=== PATIENT | male | born 1960 | race Caucasian/White ===

== ENCOUNTER 2018-11-06 08:12 | Emergency (ER) | payer BC, OTHER ==
--- NOTE | 2018-11-06 08:42 | EDM.PDOC ---
ED HPI GENERAL MEDICAL PROBLEM - General Chief Complaint: Upper Extremity Injury/Pain Stated Complaint: RIGHT HAND NOT WORKING [id number] Time Seen by Provider: 11/06/18 08:40 Source of Information: Reports: Patient History Limitations: Reports: No Limitations - History of Present Illness INITIAL COMMENTS - FREE TEXT/NARRATIVE: This 57 yo male patient reports to the ED with right hand weakness, numbness and swelling. The patient reports he noticed the symptoms this morning, but his symptoms have not gone away at this time. The patient reports when he was at work, he had a difficult time moving his right arm. The patient reports he still has some weakness in his right hand, but his arm seems to be working fine. The patient reports a history of a traumatic injury to his head. The patient has also been seen by a chiropractor (last visit 1 year ago). The patient reports the swelling in his right upper extremity has decreased. Onset: Today Onset Date: 11/06/18 Onset Time: 06:30 Duration: Constant, Improving Location: Reports: Upper Extremity, Right Quality: Reports: Dull (numbness with swelling) Severity: Moderate Improves with: Reports: Other (time) Worsens with: Reports: None Associated Symptoms: Reports: No Other Symptoms - Related Data Allergies Allergy/AdvReac Type Severity Reaction Status Date / Time small red pill for itching Allergy Rash Uncoded 11/06/18 08:19 Home Meds: Home Meds Aspirin [Madi Chewable] 81 mg PO DAILY 04/03/14 [History] Losartan [Cozaar] 50 mg PO DAILY 04/03/14 [History] Metoprolol Succinate [Toprol XL] 75 mg PO DAILY 11/06/18 [History] Past Medical History HEENT History: Reports: Allergic Rhinitis Cardiovascular History: Reports: Hypertension - Past Surgical History GI Surgical History: Reports: Hernia Repair/Other Musculoskeletal Surgical History: Reports: Arthroscopic Knee, Other (See Below) Other Musculoskeletal Surgeries/Procedures:: jaw surgery Social & Family History - Tobacco Use Smoking Status *Q: Never Smoker Second Hand Smoke Exposure: No - Recreational Drug Use Recreational Drug Use: No Review of Systems - Review of Systems Review Of Systems: ROS reveals no pertinent complaints other than HPI. ED EXAM, GENERAL - Physical Exam Exam: See Below Exam Limited By: No Limitations General Appearance: Alert, WD/WN, Mild Distress Eye Exam: Bilateral Eye: EOMI, Normal Inspection, PERRL Ears: Normal External Exam, Normal Canal, Hearing Grossly Normal, Normal TMs Nose: Normal Inspection, Normal Mucosa, No Blood Throat/Mouth: Normal Inspection, Normal Lips, Normal Teeth, Normal Gums, Normal Oropharynx, Normal Voice, No Airway Compromise Head: Atraumatic, Normocephalic Neck: Normal Inspection, Supple, Non-Tender, Full Range of Motion Respiratory/Chest: No Respiratory Distress, Lungs Clear, Normal Breath Sounds, No Accessory Muscle Use, Chest Non-Tender Cardiovascular: Normal Peripheral Pulses, Regular Rate, Rhythm, No Edema, No Gallop, No JVD, No Murmur, No Rub GI/Abdominal: Normal Bowel Sounds, Soft, Non-Tender, No Organomegaly, No Distention, No Abnormal Bruit, No Mass (Male) Exam: Deferred Rectal (Males) Exam: Deferred Back Exam: Normal Inspection, Full Range of Motion, NT Extremities: Arm Pain (right arm weakness, numbness, swelling and coordination problems. 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 There was some mild swelling of the right hand, but the patient reports he normally has some swelling due to arthritis. ) Neurological: Alert, Oriented, CN II-XII Intact, Normal Cognition, Normal Gait Psychiatric: Normal Affect, Normal Mood Skin Exam: Warm, Dry, Intact, Normal Color, No Rash Lymphatic: No Adenopathy Course - Vital Signs Last Recorded V/S: Last Vital Signs Temp 35.4 C 11/06/18 08:15 Pulse 72 11/06/18 08:15 Resp 18 11/06/18 08:15 BP 143/89 H 11/06/18 08:15 Pulse Ox 97 11/06/18 08:15 - Orders/Labs/Meds Labs: Laboratory Tests 11/06/18 11/06/18 11/06/18 Range/Units 08:37 08:37 08:37 WBC 7.3 (5.0-10.0) 10^3/uL RBC 5.18 (4.6-6.2) 10^6/uL Hgb 16.9 (14.0-18.0) g/dL Hct 49.8 (40.0-54.0) % MCV 96.1 (80-100) fL MCH 32.6 (27.0-34.0) pg MCHC 33.9 (33.0-35.0) g/dL Plt Count 246 (150-450) 10^3/uL Neut % (Auto) 56.5 (42.2-75.2) % Lymph % (Auto) 30.0 (20.5-50.1) % Wells % (Auto) 10.1 H (2-8) % Eos % (Auto) 2.8 (1.0-3.0) % Baso % (Auto) 0.6 (0.0-1.0) % Add Manual Diff Yes Neutrophils % (Manual) 58 (42-75) % Band Neutrophils % 3 % Lymphocytes % (Manual) 25 (20-50) % Monocytes % (Manual) 9 H (2-8) % Eosinophils % (Manual) 5 H (1-3) % D-Dimer, Quantitative < 100 (0-400) ng/mL Sodium 137 (135-145) mmol/L Potassium 4.1 (3.6-5.0) mmol/L Chloride 98 L (101-111) mmol/L Carbon Dioxide 27.0 (21.0-31.0) mmol/L Anion Gap 16.1 BUN 10 (7-18) mg/dL Creatinine 1.0 (0.6-1.3) mg/dL Est Cr Clr Drug Dosing 83.47 mL/min Estimated GFR (MDRD) > 60 BUN/Creatinine Ratio 10.00 Glucose 101 (74-105) mg/dL Calcium 9.3 (8.4-10.2) mg/dl Total Bilirubin 0.8 (0.2-1.0) mg/dL AST 31 (10-42) IU/L ALT 31 (10-60) IU/L Alkaline Phosphatase 63 (42-121) IU/L Total Protein 7.8 (6.7-8.2) g/dl Albumin 4.3 (3.2-5.5) g/dl Globulin 3.5 Albumin/Globulin Ratio 1.23 Departure - Departure Time of Disposition: 09:08 Disposition: Home, Self-Care 01 Condition: Good Clinical Impression: Pinched nerve in shoulder Qualifiers: Laterality: right Qualified Code(s): G56.81 - Other specified mononeuropathies of right upper limb - Discharge Information *PRESCRIPTION DRUG MONITORING PROGRAM REVIEWED*: Not Applicable *COPY OF PRESCRIPTION DRUG MONITORING REPORT IN PATIENT LUIS ARMANDO: Not Applicable Instructions: Focal Neuropathy Forms: ED Department Discharge Care Plan Goals: The patient was advised of the examination and lab results. With the patient's symptom resolution, the patient was encouraged to avoid sleeping with his arm behind his head. If the patient has any additional symptoms or concerns, the patient should either follow-up with his primary care facility or return to the emergency department.
[2018-11-06 09:04] LABS: ANION GAP 16.1; CHLORIDE,CL 98 mmol/L (101-111); SODIUM,NA 137 mmol/L (135-145)
== END 2018-11-06 09:16 | disposition home or self-care (01) ==
LOC: DL.ED 08:12
DX: G56.81 Other specified mononeuropathies of right upper limb (principal); I10 Essential (primary) hypertension; Z79.82 Long term (current) use of aspirin; Z79.899 Other long term (current) drug therapy; Z88.8 Allergy status to other drugs, medicaments and biological substances
CPT/HCPCS: 36415; 80053; 85025; 85379; 99283